=== PATIENT | male | born 1990 | race Hispanic/Latino ===

== ENCOUNTER 2021-11-28 00:22 | Emergency (ER) | payer BC ==
[~2021-11-28] VITALS: Ht 180.3 cm; Wt 90.7 kg
[2021-11-28 01:29] VITALS: BP 132/52
== END 2021-11-28 01:21 | disposition home or self-care (01) ==
LOC: FSED 00:39
DX: F41.9 Anxiety disorder, unspecified (principal)
CPT/HCPCS: 99282